=== PATIENT | female | born 1995 | race Two or more races ===

== ENCOUNTER → 2019-06-19 | Outpatient (CLI) | payer OTHER | END | disposition home or self-care (01) | LOC: PRENATAL 13:00 | DX: O35.3XX0 Maternal care for (suspected) damage to fetus from viral disease in mother, not applicable or unspecified (principal); Z36.89 Encounter for other specified antenatal screening ==

== ENCOUNTER → 2019-09-27 | Outpatient (CLI) | payer OTHER | END | disposition home or self-care (01) | LOC: PRENATAL 11:30 | PROVIDERS: ATTEND Obstetrics & Gynecology Maternal & Fetal Medicine | DX: O26.843 Uterine size-date discrepancy, third trimester (principal); O35.0XX1 Maternal care for (suspected) central nervous system malformation in fetus, fetus 1; Z36.89 Encounter for other specified antenatal screening; Z3A.36 36 weeks gestation of pregnancy ==

== ENCOUNTER 2019-10-17 14:15 | Inpatient (IN) | payer OTHER ==
[~2019-10-17] VITALS: Ht 152.4 cm; Wt 63.5 kg
[2019-10-25] MEDS ORDERED: PRENATAL TABLE1 EAC3 PO (19:25)
[2019-11-02] MEDS ORDERED: Tylenol #3 PO (09:08)
== END 2019-11-02 14:13 | disposition home or self-care (01) | DRG 788 ==
LOC: EDSTATUS 14:15 → ADM 14:15 → OB/GYN 10-23 14:15 → LDR 10-30 08:36 → O/R 10-30 21:09 → OB/GYN 10-30 21:36
PROVIDERS: ADMIT Obstetrics & Gynecology; ATTEND Obstetrics & Gynecology
PROC: 4A1HXFZ Monitoring of Products of Conception, Cardiac Rhythm, External Approach (ICD-10-PCS; 2019-10-30)
PROC: 10D00Z1 Extraction of Products of Conception, Low, Open Approach (ICD-10-PCS; principal; 2019-10-30 18:00)
DX: O62.1 Secondary uterine inertia (principal); O48.0 Post-term pregnancy; Z37.0 Single live birth; Z3A.41 41 weeks gestation of pregnancy; Z20.828 Contact with and (suspected) exposure to other viral communicable diseases; Z09 Encounter for follow-up examination after completed treatment for conditions other than malignant neoplasm; Z86.19 Personal history of other infectious and parasitic diseases

== ENCOUNTER 2019-10-24 12:24 | Outpatient (CLI) | payer OTHER ==
[2019-10-25] MEDS ORDERED: PRENATAL TABLE1 EAC3 PO (19:25)
== END 2019-10-24 13:08 | disposition home or self-care (01) ==
LOC: NST 12:24
PROVIDERS: ATTEND Obstetrics & Gynecology
DX: Z34.83 Encounter for supervision of other normal pregnancy, third trimester (principal)

== ENCOUNTER 2019-10-25 18:58 | Outpatient (CLI) | payer OTHER ==
[2019-10-25] MEDS ORDERED: PRENATAL TABLE1 EAC3 PO (19:25)
== END 2019-10-26 12:03 | disposition home or self-care (01) ==
LOC: OBS/DEL 18:58
PROVIDERS: ATTEND Obstetrics & Gynecology
DX: O47.1 False labor at or after 37 completed weeks of gestation (principal); O98.513 Other viral diseases complicating pregnancy, third trimester; U07.1 COVID-19

== ENCOUNTER → 2019-10-29 | Outpatient (CLI) | payer OTHER ==
[~2019-10-29] MED LIST: PRENATAL TABLE1 EAC3 PO
== END | disposition home or self-care (01) ==
LOC: NST 18:06
PROVIDERS: ATTEND Obstetrics & Gynecology
DX: Z34.83 Encounter for supervision of other normal pregnancy, third trimester (principal)

== ENCOUNTER 2021-07-03 13:35 | Emergency (ER) | payer OTHER ==
[~2021-07-03] VITALS: Ht 152.4 cm; Wt 51.7 kg
[~2021-07-03 13:35] MED LIST changes: +Tylenol #3 PO
[2021-07-03] MEDS ORDERED: FAMOTIDINE20 MG PO (14:00)
[2021-07-03] MEDS ORDERED: DOXYLAMINE-PYR1 EACH PO (14:00)
== END 2021-07-03 18:38 | disposition home or self-care (01) ==
LOC: ER 13:35
DX: O20.9 Hemorrhage in early pregnancy, unspecified (principal)

== ENCOUNTER 2021-11-03 14:23 | Outpatient (CLI) | payer OTHER ==
[~2021-11-03 14:23] MED LIST changes: +DOXYLAMINE-PYR1 EACH PO; +FAMOTIDINE20 MG PO
== END 2021-11-03 16:18 | disposition home or self-care (01) ==
LOC: PRENATAL 14:23
PROVIDERS: ATTEND Obstetrics & Gynecology Maternal & Fetal Medicine
DX: O35.0XX0 Maternal care for (suspected) central nervous system malformation in fetus, not applicable or unspecified (principal); O34.219 Maternal care for unspecified type scar from previous cesarean delivery; Z3A.26 26 weeks gestation of pregnancy